=== PATIENT | female | born 1985 | race Caucasian/White ===

== ENCOUNTER 2018-07-21 12:12 | Day surgery (SDC) | payer BC ==
[~2018-07-21] VITALS: Ht 162.6 cm; Wt 107.2 kg
[~2018-07-21 12:12] MED LIST: AC500T PO; AMOX500C2 PO; CEPH-38 PO; CLIN300C3 PO; DCS100C PO; HYDR-3583 PO; IBP600T1 PO; IBP800T PO; IBUP-30 PO; PREN1TAB39 PO; PROAIR INH; SULF1TAB38 PO; XOPENEX
[2018-07-21 12:30] VITALS: BP 134/80
[2018-07-21] MEDS ORDERED: MIDAZOLAM 2 MG/2 ML (VERSED) VIAL ONE (12:48)
[2018-07-21] MEDS ORDERED: fentaNYL INJECTION 100 MCG/2 ML AMP ONE ×2 (12:48→13:51)
[2018-07-21] MEDS ORDERED: LACTATED RINGERS 1,000 ML IV PRN (12:52)
[2018-07-21] MEDS ORDERED: SCOPOLAMINE 1.5 MG (TRANSDERM-SCOP) PATCH TOP ONE (13:00)
[2018-07-21] MEDS ORDERED: FAMOTIDINE 20MG/2ML IV (PEPCID) IV ONE (13:00)
[2018-07-21] MEDS ORDERED: ONDANSETRON 4 MG/2 ML (SDV) Z0FRAN IV ONE (13:00)
[2018-07-21] MEDS ORDERED: MIDAZOLAM 2 MG/2 ML (VERSED) VIAL IV ONE (13:00)
[2018-07-21] MEDS ORDERED: NS (IVPB) 50 ML ONE (13:18)
[2018-07-21] MEDS ORDERED: metroNIDAZOLE 500MG/100ML IVPB 100 ML ONE (13:18)
[2018-07-21] MEDS ORDERED: ceFAZolin 1,000 MG/10 ML (ANCEF) VIAL ONE (13:18)
[2018-07-21] MEDS ORDERED: metroNIDAZOLE 500MG/100ML IVPB 100 ML IV ONE (13:30)
[2018-07-21] MEDS ORDERED: ceFAZolin INJECTION 1,000 MG in NS (IVPB) 50 ML IV ONE (13:30)
--- NOTE | 2018-07-21 13:30 | Progress Note-Pre Operative ---
Pre-Operative Progress Note H&P Reviewed The H&P was reviewed, patient examined and no changes noted. Date Seen by Provider: Jul 21, 2018 Time Seen by Provider: 12:35 Date H&P Reviewed: Jul 21, 2018 Time H&P Reviewed: 11:30 Pre-Operative Diagnosis: missed /blighted ovum, Rh + LASHAY GARCIA DO Jul 21, 2018 13:30
[2018-07-21] MEDS ORDERED: TERB30CR TP (13:49)
[2018-07-21] MEDS ORDERED: RT-ALBUINH INH (13:49)
[2018-07-21] MEDS ORDERED: METHYLERGONOVINE 0.2 MG/ML (METHERGINE) AMP ONE (13:51)
--- NOTE | 2018-07-21 13:58 | Operative Report ---
Operative Report Date of Procedure/Surgery Jul 21, 2018 Surgeon (s) LASHAY GARCIA DO Disassembler Product (s): NA Post-Operative Diagnosis Blighted ovum/Missed Procedure Performed Suction dilation and curettage Description of Procedure Anesthesia Type: General Estimated blood loss (mL): 50 Specimen(s) collected/removed products of conception Description of the Procedure With informed consent the patient was taken to the operating room where general anesthesia was found to be adequate. She was prepped and draped in the usual sterile fashion in the dorsolithotomy position. The bladder was drained of clear yellow urine with a straight cath. (urine 100 ml). The speculum was placed in the vagina and the cervix was grasped with a tenaculum and the uterus was dilated to 12 cm and then the cervix was gently dilated with Joshua dilators to allow the insertion of the curette. an 7 mm curved section curette was inserted and a gentle section was done removing products of conception. This was followed with a sharp curette until a gritty texture was heard. The tenaculum was removed and there was minimal bleeding from the cervix. The instruments were removed from the vagina. The patient was awakened and taken to the recovery room in a stable condition. Sponge, lap, instrument counts were correct times two. Findings of the Procedure moderate amounts of products of conception Allergies and Home Medications Allergies Coded Allergies: egg (Verified Allergy, Mild, 07/21/18) Latex, Natural Rubber (Verified Allergy, Unknown, rash, 07/21/18) Home Medications Acetaminophen 500 Mg Tablet, 1-2 TAB PO q 4 hr prn, (Reported) Albuterol Sulfate 1 Puff Puff, 1 PUFF INH Q4H, (Reported) 1 PUFF = 90 MCG Ibuprofen 200 Mg Tablet, 400 MG PO BID PRN, (Reported) Ibuprofen 800 Mg Tab, 800 MG PO q 8 hr prn, (Reported) Patient Home Medication List Home Medication List Reviewed: Yes LASHAY GARCIA DO Jul 21, 2018 13:58
[2018-07-21] MEDS ORDERED: ACHD5005 PO (14:08)
[2018-07-21] MEDS ORDERED: METH0.2T47 PO (14:08)
[2018-07-21] MEDS ORDERED: IBUP-1773 PO (14:08)
--- NOTE | 2018-07-21 14:11 | Discharge Inst-Women's Service ---
Discharge Inst-Women's Serv Depart Medication/Instructions New, Converted or Re-Newed RX: RX on Chart Instructions methergine should be taken as prescribed until gone (to prevent excess bleeding) Final Diagnosis missed /blighted ovum history of delayed post operative hemorrhage Consults/Follow Up Additional Follow Up: Yes (2-3 weeks) Activity Activity: Activity as Tolerated Driving Instructions: No Driving for 24 Hours NO SMOKING: NO SMOKING Nothing Inside Vagina: No Douching, No [place], No Tampons Diet Discharge Diet: No Restrictions Symptoms to Report to : Bleeding Excessive, Pain Increased, Fever Over 101 Degrees F, Vaginal Bleeding Increase, Cramps in Feet or Legs, Vaginal Discharge Foul For Any Problems or Questions: Contact Your Physician LASHAY GARCIA DO Jul 21, 2018 14:11
[2018-07-21] MEDS ORDERED: PROPOFOL INJECTION 50 ML IV ONE (14:14)
[2018-07-21] MEDS ORDERED: SEVOFLURANE (ULTANE) 15 ML INHAL SOLN ONE (14:14)
[2018-07-21] MEDS ORDERED: ONDANSETRON 4 MG/2 ML (SDV) Z0FRAN ONE ×2 (14:14→16:21)
[2018-07-21] MEDS ORDERED: KETOROLAC 30 MG/ML VIAL ONE (14:14)
[2018-07-21] MEDS ORDERED: LIDOCAINE PF 0.5% 50 ML (XYLOCAINE) VIAL ONE (14:14)
[2018-07-21] MEDS ORDERED: DEXAMETHASONE 10 MG/ML (DECADRON) 1 ML VIAL ONE (14:14)
[2018-07-21] MEDS ORDERED: proPOfol 200 MG/20 ML (DIPRIVAN) VIAL IV ONE (14:14)
[2018-07-21] MEDS ORDERED: HYDROmorphone 2 MG/ML VIAL (DILAUDID) IV ONE (14:15)
[2018-07-21] MEDS ORDERED: ONDANSETRON 4 MG/2 ML (SDV) Z0FRAN IVP PRN (14:15)
[2018-07-21] MEDS ORDERED: KETOROLAC 30 MG/ML VIAL IVP ONE (14:15)
[2018-07-21] MEDS ORDERED: HYDROmorphone 2 MG/ML VIAL (DILAUDID) ONE (14:15)
[2018-07-21] MEDS ORDERED: METHYLERGONOVINE 0.2 MG/ML (METHERGINE) AMP IM ONE (14:15)
--- NOTE | 2018-07-21 14:23 | Anesthesia-General Post-Op ---
General Patient Condition Mental Status/LOC: Same as Preop Cardiovascular: Satisfactory Nausea/Vomiting: Absent Respiratory: Satisfactory Pain: Controlled Complications: Absent Post Op Complications Complications None Follow Up Care/Instructions Patient Instructions None needed. Anesthesia/Patient Condition Patient Condition Patient is doing well, no complaints, stable vital signs, no apparent adverse anesthesia problems. No complications reported per nursing. D/C home per [facility] [place] Criteria: Yes CLINT FISHER CRNA Jul 21, 2018 14:23
[2018-07-21 15:00] VITALS: BP 137/83
[2018-07-21 15:30] VITALS: BP 133/75
[2018-07-21 16:00] VITALS: BP 133/87
[2018-07-21] MEDS ORDERED: ONDANSETRON 4 MG/2 ML (SDV) Z0FRAN IVP ONE (16:30)
[2018-07-21 16:45] VITALS: BP 120/67
[2018-07-21 16:55] VITALS: BP 120/67
== END 2018-07-21 16:55 | disposition home or self-care (01) ==
LOC: SDC 12:12
PROVIDERS: ATTEND Obstetrics & Gynecology
DX: O02.1 Missed abortion (principal); Z11.2 Encounter for screening for other bacterial diseases; J45.909 Unspecified asthma, uncomplicated; F41.9 Anxiety disorder, unspecified; E66.9 Obesity, unspecified; Z79.899 Other long term (current) drug therapy
CPT/HCPCS: 87081; 94664

== ENCOUNTER 2020-07-01 14:55 | Inpatient (IN) | payer BC ==
[2020-07-01] VITALS (10 sets, daily range): BP systolic 107–144; BP diastolic 65–99
[~2020-07-01] VITALS: Ht 160 cm; Wt 116.9 kg
[~2020-07-01 14:55] MED LIST changes: +ACHD5005 PO; +IBUP-1773 PO; +METH0.2T47 PO; +RT-ALBUINH INH; +TERB30CR TP
[2020-07-01] MEDS ORDERED: D5 LR IV SOLUTION 1,000 ML IV SCH ×2 (15:15→17:05)
[2020-07-01] MEDS ORDERED: BETAMETHASONE ACE/NA PHOS 6 MG/ML (CELESTONE SOLUSPAN) IM SCH (15:15)
[2020-07-01 15:29] LABS: BASOPHILS % (AUTO) 0 % (0-10); EOSINOPHILS # (AUTO) 0.2 10^3/uL (0.0-0.3); EOSINOPHILS % (AUTO) 1 % (0-10); HEMATOCRIT 38 % (35-52); HEMOGLOBIN 12.5 g/dL (11.5-16.0); LYMPHOCYTES % (AUTO) 16 % (12-44); MEAN CORPUSCULAR HEMOGLOBIN 28 pg (25-34); MEAN CORPUSCULAR HGB CONC 33 g/dL (32-36); MEAN CORPUSCULAR VOLUME 84 fL (80-99); MEAN PLATELET VOLUME 10.7 fL (9.0-12.2); MONOCYTES % (AUTO) 8 % (0-12); NEUTROPHILS # (AUTO) 9.4 10^3/uL (1.8-7.8); NEUTROPHILS % (AUTO) 74 % (42-75); PLATELET COUNT 298 10^3/uL (130-400); WHITE BLOOD COUNT 12.8 10^3/uL (4.3-11.0)
[2020-07-01] MEDS ORDERED: D5 LR IV SOLUTION 1,000 ML IV ONE (15:29)
[2020-07-01] MEDS ORDERED: BETAMETHASONE ACE/NA PHOS 6 MG/ML (CELESTONE SOLUSPAN) ONE (15:30)
[2020-07-01 15:49] LABS: ALANINE AMINOTRANSFERASE 97 U/L (0-55); ALBUMIN 3.6 GM/DL (3.2-4.5); ALKALINE PHOSPHATASE 177 U/L (40-136); BILIRUBIN,TOTAL 0.4 MG/DL (0.1-1.0); BUN/CREATININE RATIO 17; CALCIUM 9.7 MG/DL (8.5-10.1); CARBON DIOXIDE 18 MMOL/L (21-32); CHLORIDE 106 MMOL/L (98-107); GFR ESTIMATED > 60; GLUCOSE 70 MG/DL (70-105); POTASSIUM 3.6 MMOL/L (3.6-5.0); SODIUM 136 MMOL/L (135-145); TOTAL PROTEIN 7.6 GM/DL (6.4-8.2); URIC ACID 6.9 MG/DL (2.6-7.2)
--- NOTE | 2020-07-01 16:00 | NUR ---
Dr singh called by this RN with lab results and pt report including FHT, occasional UC, denies preE SS, current VS, 1 dose of beta admin per order, still working on starting IV. Dr Singh states with liver enzymes elevated, he is going to go ahead and do a Csection today approx 1700. this rn will call house sup/OR/anesthesia and place orders.
--- NOTE | 2020-07-01 16:07 | NUR ---
Gertrudis rooming house keeper called and notified of CS at 1700, jennifer serrano will call in OR crew
[2020-07-01] MEDS ORDERED: CITRIC ACID/SOB CIT (BICITRA) 30 ML UDC PO ONE (16:15)
[2020-07-01] MEDS ORDERED: LACTATED RINGERS 1,000 ML IV PRN (16:15)
[2020-07-01] MEDS ORDERED: METOCLOPRAMIDE INJ 10 MG/2 ML (REGLAN) IV ONE (16:15)
[2020-07-01 16:29] LABS: BILIRUBIN,URINE NEGATIVE (NEGATIVE); CLARITY,URINE TURBID; COLOR,URINE YELLOW; GLUCOSE, URINE (UA) NEGATIVE (NEGATIVE); KETONES,URINE 3+ (NEGATIVE); LEUKOCYTE ESTERASE ,URINE NEGATIVE (NEGATIVE); NITRITE,URINE NEGATIVE (NEGATIVE); PH,URINE 5.5 (5-9); PROTEIN,URINE TRACE (NEGATIVE)
[2020-07-01] MEDS ORDERED: ceFAZolin 2 GM IV Premixed 50 ML IV ONE (16:30)
[2020-07-01] MEDS ORDERED: metroNIDAZOLE 500MG/100ML IVPB 100 ML IV ONE (16:30)
[2020-07-01] MEDS ORDERED: CITRIC ACID/SOB CIT (BICITRA) 30 ML UDC ONE (16:36)
[2020-07-01] MEDS ORDERED: METOCLOPRAMIDE INJ 10 MG/2 ML (REGLAN) ONE (16:36)
[2020-07-01] MEDS ORDERED: FAMOTIDINE 20MG/2ML IV (PEPCID) ONE (16:36)
[2020-07-01] MEDS ORDERED: WATER (STERILE) FOR INJECTION 20 ML ONE (16:37)
[2020-07-01] MEDS ORDERED: AMPICILLIN 2,000 MG/14.8 ML (IV USE) ONE (16:37)
[2020-07-01] MEDS ORDERED: OXYTOCIN PRE-MIX DRIP 1,000 ML IV ONE (16:37)
[2020-07-01] MEDS ORDERED: metroNIDAZOLE 500MG/100ML IVPB 100 ML ONE (16:38)
[2020-07-01] MEDS ORDERED: fentaNYL INJECTION 100 MCG/2 ML AMP ONE (16:38)
[2020-07-01] MEDS ORDERED: ROPIVACAINE 5MG/ML 30ML VIAL ONE (16:42)
[2020-07-01] MEDS: LACTATED RINGERS 1,000 ML IV PRN ×2 (16:42→17:06)
[2020-07-01 16:46] LABS: AMORPHOUS SEDIMENT,UR LARGE AMOR URATES /LPF; BACTERIA,URINE NEGATIVE /HPF
[2020-07-01] MEDS ORDERED: OXYC1TAB12 PO (17:09)
[2020-07-01] MEDS ORDERED: DOCU-143 PO (17:09)
[2020-07-01] MEDS ORDERED: ceFAZolin 2 GM IV Premixed 50 ML ONE (17:09)
[2020-07-01] MEDS ORDERED: IBUP-1780 PO (17:09)
--- NOTE | 2020-07-01 17:11 | Discharge Inst-Surgical ---
Discharge Inst-Surgical Depart Medication/Instructions New, Converted or Re-Newed RX: RX on Chart Consults/Follow Up Patient Instructions: DIRECTED Orders & Referrals Follow Up Appt: RTC 1 week for incision check. Call to make follow up appt. for patient in 4 weeks. Wound Care: Remove maricel, apply benzoin and steri strips. Activity Per routine post instructions. Please call in RX to patient pharmacy. Diet as tolerated Patient may shower or tub bathe as desired. Continue home meds Activity Activity as Tolerated: No Diet Discharge Diet: No Restrictions ZO COTA MD Jul 01, 2020 17:11
[2020-07-01] MEDS ORDERED: ONDANSETRON 4 MG/2 ML (SDV) Z0FRAN IVP PRN ×2 (17:15→18:15)
[2020-07-01] MEDS ORDERED: MEASLES,MUMPS,RUBELLA 1 EA INJ SC ONE (17:15)
[2020-07-01] MEDS ORDERED: TETANUS,DIPTH,PERTUSS P/F (BOOSTRIX) 0.5 ML VIAL IM ONE (17:15)
--- NOTE | 2020-07-01 17:16 | History & Physical ---
History and Physical Date Seen by Provider: Jul 01, 2020 Time Seen by Provider: 17:12 This patient is a 34-year-old white female at 35+ weeks gestation. She was seen in clinic yesterday with an elevated blood pressure. Lab work was obtained for preeclampsia showed a slightly elevated urine protein and significantly elevated liver enzymes. She was instructed to come to labor and delivery today repeat labs shows an increase in the liver enzyme and an increase in the urine protein. Patient blood pressure has remained elevated well beyond her baseline consistent with preeclampsia and with the abnormal lab work now with severe features. Patient had a GBS culture that was. She denies rupture membranes or bleeding. She has a mild headache that is relatively new. Allergies are to latex and natural rubber Medications are vitamins and Nasonex Medical social and surgical history is all per the antepartum record HEENT exam is normal Neck is supple no lymphadenopathy no thyromegaly Abdomen is gravid obese soft nontender nondistended Extremities show no clubbing cyanosis. There is no Homans' sign. Laboratory Tests Test 07/01/20 15:15 07/01/20 15:20 07/01/20 16:30 Range/Units Urine Color YELLOW Urine Clarity TURBID Urine pH 5.5 5-9 Urine Specific [place] >=1.030 1.016-1.022 Urine Protein TRACE H NEGATIVE Urine Glucose (UA) NEGATIVE NEGATIVE Urine Ketones 3+ H NEGATIVE Urine Nitrite NEGATIVE NEGATIVE Urine Bilirubin NEGATIVE NEGATIVE Urine Urobilinogen 0.2 < = 1.0 MG/DL Urine Leukocyte Esterase NEGATIVE NEGATIVE Urine RBC (Auto) NEGATIVE NEGATIVE Urine RBC NONE /HPF Urine WBC NONE /HPF Urine Crystals PRESENT H /LPF Urine Amorphous Sediment LARGE [place] URATES H /LPF Urine Bacteria NEGATIVE /HPF Urine Casts NONE /LPF Urine Mucus NEGATIVE /LPF Urine Culture Indicated NO Urine Creatinine 187 H 30-125 MG/DL Urine Protein/Creatinine Ratio 0.16 White Blood Count 12.8 H 4.3-11.0 10^3/uL Red Blood Count 4.49 3.80-5.11 10^6/uL Hemoglobin 12.5 11.5-16.0 g/dL Hematocrit 38 35-52 % Mean Corpuscular Volume 84 80-99 fL Mean Corpuscular Hemoglobin 28 25-34 pg Mean Corpuscular Hemoglobin Concent 33 32-36 g/dL Red Cell Distribution Width 13.3 10.0-14.5 % Platelet Count 298 130-400 10^3/uL Mean Platelet Volume 10.7 9.0-12.2 fL Immature Granulocyte % (Auto) 1 % Neutrophils (%) (Auto) 74 42-75 % Lymphocytes (%) (Auto) 16 12-44 % Monocytes (%) (Auto) 8 0-12 % Eosinophils (%) (Auto) 1 0-10 % Basophils (%) (Auto) 0 0-10 % Neutrophils # (Auto) 9.4 H 1.8-7.8 10^3/uL Lymphocytes # (Auto) 2.0 1.0-4.0 10^3/uL Monocytes # (Auto) 1.0 0.0-1.0 10^3/uL Eosinophils # (Auto) 0.2 0.0-0.3 10^3/uL Basophils # (Auto) 0.0 0.0-0.1 10^3/uL Immature Granulocyte # (Auto) 0.1 0.0-0.1 10^3/uL Sodium Level 136 135-145 MMOL/L Potassium Level 3.6 3.6-5.0 MMOL/L Chloride Level 106 98-107 MMOL/L Carbon Dioxide Level 18 L 21-32 MMOL/L Anion Gap 12 5-14 MMOL/L Blood Urea Nitrogen 12 7-18 MG/DL Creatinine 0.70 0.60-1.30 MG/DL Estimat Glomerular Filtration Rate > 60 BUN/Creatinine Ratio 17 Glucose Level 70 70-105 MG/DL Uric Acid 6.9 2.6-7.2 MG/DL Calcium Level 9.7 8.5-10.1 MG/DL Corrected Calcium 10.0 8.5-10.1 MG/DL Total Bilirubin 0.4 0.1-1.0 MG/DL Aspartate Amino Transf (AST/SGOT) 42 H 5-34 U/L Alanine Aminotransferase (ALT/SGPT) 97 H 0-55 U/L Alkaline Phosphatase 177 H 40-136 U/L Lactate Dehydrogenase 227 H 125-220 U/L Total Protein 7.6 6.4-8.2 GM/DL Albumin 3.6 3.2-4.5 GM/DL Coronavirus 2019 ([facility]) Negative Negative Pelvic exam is deferred Assessment and plan 35-6/7 weeks gestation with preeclampsia with severe features. Patient has been given a single dose of betamethasone but we will proceed to delivery secondary to the severe features of her preeclampsia. We will initiate magnesium after delivery and continue that overnight and reevaluate in the morning. Surgical risk complications recovery and follow-up have been fully discussed. Patient understands the plan and agrees 35-6/7 weeks gestation with hypertensive disease of /preeclampsia with severe features and previous Allergies and Home Medications Allergies Coded Allergies: egg (Verified Allergy, Mild, 07/21/18) Latex, Natural Rubber (Verified Allergy, Unknown, rash, 07/21/18) Home Medications Acetaminophen 500 Mg Tablet, 1-2 TAB PO q 4 hr prn, (Reported) Albuterol Sulfate 1 Puff Puff, 1 PUFF INH Q4H, (Reported) 1 PUFF = 90 MCG Docusate Sodium 100 Mg Capsule, 100 MG PO BID Prescribed by: ZO SANTO on 07/01/201708 Hydrocodone Bit/Acetaminophen 1 Tab Tab, 1 TAB PO Q6H PRN for PAIN-MODERATE Prescribed by: LASHAY GARCIA on 07/21/18 140 Ibuprofen 200 Mg Tablet, 400 MG PO BID PRN, (Reported) Ibuprofen 600 Mg Tablet, 600 MG PO Q6H Prescribed by: LASHAY GARCIA on 07/21/18 1408 Ibuprofen 800 Mg Tablet, 800 MG PO Q6H PRN for PAIN Prescribed by: ZO SANTO on 07/01/201708 Methylergonovine Maleate 0.2 Mg Tablet, 0.2 MG PO QID Prescribed by: LASHAY GARCIA on 07/21/18 1408 Oxycodone HCl/Acetaminophen 1 Each Tablet, 1 TAB PO Q8H PRN for PAIN-MODERATE Prescribed by: ZO SANTO on 07/01/201708 Patient Home Medication List Home Medication List Reviewed: Yes ZO COTA MD Jul 01, 2020 17:16
[2020-07-01] MEDS ORDERED: ONDANSETRON 4 MG/2 ML (SDV) Z0FRAN ONE (17:17)
[2020-07-01 17:23] LABS: EOSINOPHILS % (MANUAL) 1 %; HYPOCHROMASIA SLIGHT; LYMPHOCYTES % (MANUAL) 12 %; MONOCYTES % (MANUAL) 5 %; NEUTROPHILS % (MANUAL) 82 %
[2020-07-01] MEDS ORDERED: FAMOTIDINE 20MG/2ML IV (PEPCID) IV ONE (17:30)
[2020-07-01] MEDS ORDERED: FLU QUADRIvalent (3YOA+) 60 mcg/0.5 ml 2020-21 (AFLURIA) IM ONE (18:00)
[2020-07-01] MEDS ORDERED: HYDROmorphone 2 MG/ML VIAL (DILAUDID) IV ONE (18:15)
[2020-07-01] MEDS: KETOROLAC 30 MG/ML VIAL IVP SCH (19:51)
[2020-07-01] MEDS: OXYTOCIN PRE-MIX DRIP 500 ML IV SCH (19:52)
[2020-07-01] MEDS ORDERED: DOCUSATE SODIUM 100 MG (COLACE) CAP PO SCH (21:00)
[2020-07-01] MEDS: oxyCODONE/APAP 10/325MG (PERCOCET 10) TABLET PO PRN (23:21)
--- NOTE | 2020-07-01 23:40 | NUR ---
Pt. up to bathroom to void with nurse assist. Pt. voided 350ml or urine in hat. Clean v-pad and underwear put on. Pt. helped back to bed. Tolerated well.
[2020-07-02] MEDS: KETOROLAC 30 MG/ML VIAL IVP SCH (01:53)
[2020-07-02 02:00] VITALS: BP 141/79
--- NOTE | 2020-07-02 02:13 | OPERATIVE REPORT ---
DATE OF SERVICE: 07/01/2020 PREOPERATIVE DIAGNOSES: A 35 and 6/7 weeks' gestation with preeclampsia with severe features as well as previous C-sections x2. POSTOPERATIVE DIAGNOSES: A 35 and 6/7 weeks' gestation with preeclampsia with severe features as well as previous C-sections x2. OPERATIVE PROCEDURE: Repeat low transverse delivery of a viable female infant with Apgars of 8 and 9 at 1 and 5 minutes respectively, weight of 6 pounds 9 ounces, time of 1732 and a cord blood pH of 7.35. OPERATIVE DESCRIPTION: With the patient in the supine position under satisfactory spinal analgesia, she was positioned supine, prepped and draped in the usual fashion for abdominal surgery. Garcia catheter was placed in the urinary bladder. A repeat Pfannenstiel incision was made through the skin with a scalpel. The patient's abdomen was entered in the usual manner. Bladder retractor placed into position and a clean scalpel used to make a 4 cm hysterotomy incision transversely across the lower uterine segment that was extended bluntly. A normal amount of amniotic fluid that was clear was released on hysterotomy. The incision was extended bluntly and a vigorous viable female was delivered via the uterine incision in the usual manner. The infant was bulb suctioned on delivery of the head and again on completion of delivery. Umbilical cord was doubly clamped and cut and infant passed to the pediatric nurse in attendance for delivery. Cord bloods were obtained. The placenta delivered spontaneously shows it was a fairly large, but somewhat atretic appearing placenta. It was sent to pathology for permanent section. The uterus was exteriorized the interior wiped cleaned with a wet laparotomy sponge. Uterine incision was then closed with running locked suture of 2-0 Vicryl. Hemostasis was complete. The uterus was returned to abdominal cavity. All blood clot and debris removed from the abdominal cavity. With sponge and needle counts correct and hemostasis assured, the anterior parietal peritoneum was closed with running suture of 2-0 Vicryl. Rectus muscles were closed with that suture as well. The rectus fascia was closed with 2-0 Vicryl, subcutaneous tissue was closed with 2-0 Vicryl and the skin was stapled. Sponge and needle counts were correct on completion of the procedure. Estimated blood loss was around 500 mL. The patient tolerated the procedure well and was transferred to recovery room in stable condition. The infant remained under the care of the pediatric nurse and Dr. Harrington, the environmental engineering technician in attendance. Job ID: [id number] DocumentID: [id number] Dictated Date: 07/01/2020 17:53:39 Tamping Machine Operator Date: 07/02/2020 02:12:47 Dictated By: ZO COTA MD MTDD
[2020-07-02 05:37] VITALS: BP 121/71
[2020-07-02] MEDS: oxyCODONE/APAP 10/325MG (PERCOCET 10) TABLET PO PRN ×3 (05:51→15:03)
[2020-07-02 06:06] LABS: BASOPHILS # (AUTO) 0.1 10^3/uL (0.0-0.1); BASOPHILS % (AUTO) 0 % (0-10); EOSINOPHILS % (AUTO) 0 % (0-10); HEMATOCRIT 33 % (35-52); HEMOGLOBIN 10.8 g/dL (11.5-16.0); LYMPHOCYTES # (AUTO) 1.5 10^3/uL (1.0-4.0); LYMPHOCYTES % (AUTO) 8 % (12-44); MEAN CORPUSCULAR HEMOGLOBIN 27 pg (25-34); MEAN CORPUSCULAR HGB CONC 33 g/dL (32-36); MEAN CORPUSCULAR VOLUME 84 fL (80-99); MEAN PLATELET VOLUME 10.5 fL (9.0-12.2); MONOCYTES # (AUTO) 1.6 10^3/uL (0.0-1.0); MONOCYTES % (AUTO) 8 % (0-12); NEUTROPHILS # (AUTO) 16.7 10^3/uL (1.8-7.8); NEUTROPHILS % (AUTO) 83 % (42-75); PLATELET COUNT 248 10^3/uL (130-400); WHITE BLOOD COUNT 20.1 10^3/uL (4.3-11.0)
[2020-07-02 06:20] LABS: ALANINE AMINOTRANSFERASE 73 U/L (0-55)
--- NOTE | 2020-07-02 07:29 | Progress Note ---
Standard Progress Note Progress Notes/Assess & Plan Date Seen by a Provider: Jul 02, 2020 Time Seen by a Provider: 07:26 Progress/Assessment & Plan This patient is without complaint she is ambulating, voiding, tolerating oral intake and has good pain control. Patient denies headache, denies shortness of breath, denies nausea vomiting, and denies chest pain Laboratory Tests Test 07/01/20 15:15 07/01/20 15:20 07/01/20 16:30 07/02/20 05:56 Range/Units Urine Color YELLOW Urine Clarity TURBID Urine pH 5.5 5-9 Urine Specific [place] >=1.030 1.016-1.022 Urine Protein TRACE H NEGATIVE Urine Glucose (UA) NEGATIVE NEGATIVE Urine Ketones 3+ H NEGATIVE Urine Nitrite NEGATIVE NEGATIVE Urine Bilirubin NEGATIVE NEGATIVE Urine Urobilinogen 0.2 < = 1.0 MG/DL Urine Leukocyte Esterase NEGATIVE NEGATIVE Urine RBC (Auto) NEGATIVE NEGATIVE Urine RBC NONE /HPF Urine WBC NONE /HPF Urine Crystals PRESENT H /LPF Urine Amorphous Sediment LARGE [place] URATES H /LPF Urine Bacteria NEGATIVE /HPF Urine Casts NONE /LPF Urine Mucus NEGATIVE /LPF Urine Culture Indicated NO Urine Creatinine 187 H 30-125 MG/DL Urine Protein/Creatinine Ratio 0.16 White Blood Count 12.8 H 20.1 H 4.3-11.0 10^3/uL Red Blood Count 4.49 3.95 3.80-5.11 10^6/uL Hemoglobin 12.5 10.8 L 11.5-16.0 g/dL Hematocrit 38 33 L 35-52 % Mean Corpuscular Volume 84 84 80-99 fL Mean Corpuscular Hemoglobin 28 27 25-34 pg Mean Corpuscular Hemoglobin Concent 33 33 32-36 g/dL Red Cell Distribution Width 13.3 13.3 10.0-14.5 % Platelet Count 298 248 130-400 10^3/uL Mean Platelet Volume 10.7 10.5 9.0-12.2 fL Immature Granulocyte % (Auto) 1 1 % Neutrophils (%) (Auto) 74 83 H 42-75 % Lymphocytes (%) (Auto) 16 8 L 12-44 % Monocytes (%) (Auto) 8 8 0-12 % Eosinophils (%) (Auto) 1 0 0-10 % Basophils (%) (Auto) 0 0 0-10 % Neutrophils # (Auto) 9.4 H 16.7 H 1.8-7.8 10^3/uL Lymphocytes # (Auto) 2.0 1.5 1.0-4.0 10^3/uL Monocytes # (Auto) 1.0 1.6 H 0.0-1.0 10^3/uL Eosinophils # (Auto) 0.2 0.0 0.0-0.3 10^3/uL Basophils # (Auto) 0.0 0.1 0.0-0.1 10^3/uL Immature Granulocyte # (Auto) 0.1 0.3 H 0.0-0.1 10^3/uL Neutrophils % (Manual) 82 % Lymphocytes % (Manual) 12 % Monocytes % (Manual) 5 % Eosinophils % (Manual) 1 % Hypochromasia SLIGHT Sodium Level 136 135-145 MMOL/L Potassium Level 3.6 3.6-5.0 MMOL/L Chloride Level 106 98-107 MMOL/L Carbon Dioxide Level 18 L 21-32 MMOL/L Anion Gap 12 5-14 MMOL/L Blood Urea Nitrogen 12 7-18 MG/DL Creatinine 0.70 0.60-1.30 MG/DL Estimat Glomerular Filtration Rate > 60 BUN/Creatinine Ratio 17 Glucose Level 70 70-105 MG/DL Uric Acid 6.9 2.6-7.2 MG/DL Calcium Level 9.7 8.5-10.1 MG/DL Corrected Calcium 10.0 8.5-10.1 MG/DL Total Bilirubin 0.4 0.1-1.0 MG/DL Aspartate Amino Transf (AST/SGOT) 42 H 32 5-34 U/L Alanine Aminotransferase (ALT/SGPT) 97 H 73 H 0-55 U/L Alkaline Phosphatase 177 H 40-136 U/L Lactate Dehydrogenase 227 H 287 H 125-220 U/L Total Protein 7.6 6.4-8.2 GM/DL Albumin 3.6 3.2-4.5 GM/DL Coronavirus 2019 ([facility]) Negative Negative Vital Signs Date Time Temp Pulse Resp B/P (MAP) Pulse Ox O2 Delivery O2 Flow Rate FiO2 07/02/20 05:37 36.8 87 20 121/71 (88) 97 Room Air 07/02/20 02:00 36.6 71 18 141/79 (99) 97 Room Air 07/02/20 01:58 Room Air 07/01/20 23:00 36.6 80 18 128/71 (90) 96 Room Air 07/01/20 19:55 37.0 86 18 129/71 (90) 97 Room Air 07/01/20 18:51 36.9 12 118/89 (99) 98 Room Air 07/01/20 18:50 Room Air 07/01/20 18:40 18 144/84 (104) 98 Room Air 07/01/20 18:35 Room Air 07/01/20 18:30 18 136/80 (98) 97 Room Air 07/01/20 18:20 Room Air 07/01/20 18:20 20 114/93 (100) 97 Room Air 07/01/20 18:15 16 107/99 (102) 98 Room Air 07/01/20 18:15 Room Air 07/01/20 18:05 Room Air 07/01/20 18:05 36.7 18 136/79 (98) 99 Room Air 07/01/20 15:45 101 143/73 (96) Room Air 07/01/20 15:10 37.2 93 16 144/65 (91) 99 Room Air I & O 07/02/20 07:00 Intake Total 2725 ml Output Total 1230 ml Balance 1495 ml Vital signs are stable. Patient is afebrile. Her blood pressures are normalizing The abdomen is benign the surgical incision is clean dry and intact. The fundus is firm below the umbilicus and nontender. Extremities show no clubbing or cyanosis. There is no Homans' sign. There are some pretibial pitting edema that is normal. Assessment and plan postoperative day #1 status post repeat delivery at 35-6/7 weeks gestation. Patient is doing well and will have routine convalescent care with close attention to her blood pressure ZO COTA MD Jul 02, 2020 07:29
[2020-07-02] MEDS ORDERED: IBUPROFEN 800 MG (MOTRIN) TAB PO ONE (07:50)
[2020-07-02 08:00] VITALS: BP 112/58
--- NOTE | 2020-07-02 08:00 | NUR ---
A.M. ASSESSMENT COMPLETED. VSS.
[2020-07-02] MEDS: IBUPROFEN 800 MG (MOTRIN) TAB PO SCH ×3 (08:02→20:17)
[2020-07-02] MEDS: DOCUSATE SODIUM 100 MG (COLACE) CAP PO SCH ×2 (08:02→20:16)
--- NOTE | 2020-07-02 08:16 | Anesthesia-Regional Post-Op ---
Regional Patient Condition Mental Status: Alert, Oriented x3 Circulation: Same as Pre-Op Headache: Absent Sensation: Full Recovery Motor Block: Absent Post Op Complications Complications None Follow Up Care/Instructions Patient Instructions None needed. Anesthesia/Patient Condition Patient is doing well, no complaints, stable vital signs, no apparent adverse anesthesia problems. No complications reported per nursing. MARK MACHUCA CRNA Jul 02, 2020 08:16
--- NOTE | 2020-07-02 09:40 | NUR ---
OUT TO AMBULATE TO NURSERY R/T INFANT BEING TREATED FOR LOW BLOOD SUGAR. PT JUST SHOWERED. MOVING WELL.
[2020-07-02 12:45] VITALS: BP 124/71
--- NOTE | 2020-07-02 12:45 | NUR ---
CARING FOR INFANT IN ROOM. GOOD INTERACTION NOTED.
--- NOTE | 2020-07-02 14:20 | NUR ---
PT C/O HAVING SOME BLEEDING ALONG INCISION. THIS RN CLEANED UP INCISION, REASSURED PT AND PLACED KERLEX GAUZE OVER INCISION AND BETWEEN SKIN FOLD.
--- NOTE | 2020-07-02 14:34 | NUR ---
DR. COTA NOTIFIED OF SMALL AMOUNT OF OOZING OF BLOOD ALONG INCISION AND GAUZE PLACED. WILL CONTINUE TO MONITOR.
--- NOTE | 2020-07-02 15:00 | NUR ---
REPORT TO NATALIIA VALLEJO RN.
--- NOTE | 2020-07-02 16:45 | NUR ---
pt ambulating in halls accompanied by s.o. and pushing in open crib.
[2020-07-02 17:19] VITALS: BP 122/64
--- NOTE | 2020-07-02 18:30 | NUR ---
Rn called to room. pt reports gauze placed over incision appears to be soiled. Rn noted kerlex dressing to be soiled with red blood. kerlex gauze dc'd, incision cleansed, small amt of oozing from mid incision noted, cleansed and replaced kerlex gauze to incision site. Discussed with pt that if/when gauze is soiled that it needs to be changed. pt verbalized understanding.
[2020-07-02] MEDS: OXYTOCIN PRE-MIX DRIP 500 ML IV SCH (19:44)
[2020-07-02 20:14] VITALS: BP 113/69
--- NOTE | 2020-07-02 20:30 | NUR ---
RN to room for assessment. Pt reports little bleeding and few pea sized clots. VSS. Gauze dressing over incision site noted to have light serosanguinous drainage. Pt reports the amount is less than prior dressing change. Dressing removed and new gauze put over incision site. Will continue to monitor. Pt denies any needs or concerns at this time.
[2020-07-03 01:23] VITALS: BP 125/57
[2020-07-03] MEDS: IBUPROFEN 800 MG (MOTRIN) TAB PO SCH ×3 (01:24→13:30)
--- NOTE | 2020-07-03 07:00 | NUR ---
REPORT FROM CAILIN OBRIEN AND EDMUNDO OBRIEN
--- NOTE | 2020-07-03 08:00 | NUR ---
INITIAL ASSESSMENT COMPLETED, VSS, SEE INTERVENTIONS FOR DETAILED ASSESSMENTS, PLAN OF CARE REVIEWED WITH PT/SO, NO QUESTIONS OR CONCERNS NOTED. AT BEDSIDE, APPRO. BONDING NOTED. DR COTA AT BEDSIDE, VISITING WITH PT, NEW ORDERS RECEIVED.
[2020-07-03 08:08] VITALS: BP 130/72
[2020-07-03] MEDS: DOCUSATE SODIUM 100 MG (COLACE) CAP PO SCH (08:08)
--- NOTE | 2020-07-03 08:19 | Progress Note ---
Standard Progress Note Progress Notes/Assess & Plan Date Seen by a Provider: Jul 03, 2020 Time Seen by a Provider: 08:16 Progress/Assessment & Plan This patient is without complaint she is ambulating, voiding, tolerating oral intake and has good pain control. Patient denies headache, denies shortness of breath, denies nausea vomiting, and denies chest pain Laboratory Tests Test 07/01/20 15:15 07/01/20 15:20 07/01/20 16:30 07/02/20 05:56 Range/Units Urine Color YELLOW Urine Clarity TURBID Urine pH 5.5 5-9 Urine Specific [place] >=1.030 1.016-1.022 Urine Protein TRACE H NEGATIVE Urine Glucose (UA) NEGATIVE NEGATIVE Urine Ketones 3+ H NEGATIVE Urine Nitrite NEGATIVE NEGATIVE Urine Bilirubin NEGATIVE NEGATIVE Urine Urobilinogen 0.2 < = 1.0 MG/DL Urine Leukocyte Esterase NEGATIVE NEGATIVE Urine RBC (Auto) NEGATIVE NEGATIVE Urine RBC NONE /HPF Urine WBC NONE /HPF Urine Crystals PRESENT H /LPF Urine Amorphous Sediment LARGE LIVIER URATES H /LPF Urine Bacteria NEGATIVE /HPF Urine Casts NONE /LPF Urine Mucus NEGATIVE /LPF Urine Culture Indicated NO Urine Creatinine 187 H 30-125 MG/DL Urine Protein/Creatinine Ratio 0.16 White Blood Count 12.8 H 20.1 H 4.3-11.0 10^3/uL Red Blood Count 4.49 3.95 3.80-5.11 10^6/uL Hemoglobin 12.5 10.8 L 11.5-16.0 g/dL Hematocrit 38 33 L 35-52 % Mean Corpuscular Volume 84 84 80-99 fL Mean Corpuscular Hemoglobin 28 27 25-34 pg Mean Corpuscular Hemoglobin Concent 33 33 32-36 g/dL Red Cell Distribution Width 13.3 13.3 10.0-14.5 % Platelet Count 298 248 130-400 10^3/uL Mean Platelet Volume 10.7 10.5 9.0-12.2 fL Immature Granulocyte % (Auto) 1 1 % Neutrophils (%) (Auto) 74 83 H 42-75 % Lymphocytes (%) (Auto) 16 8 L 12-44 % Monocytes (%) (Auto) 8 8 0-12 % Eosinophils (%) (Auto) 1 0 0-10 % Basophils (%) (Auto) 0 0 0-10 % Neutrophils # (Auto) 9.4 H 16.7 H 1.8-7.8 10^3/uL Lymphocytes # (Auto) 2.0 1.5 1.0-4.0 10^3/uL Monocytes # (Auto) 1.0 1.6 H 0.0-1.0 10^3/uL Eosinophils # (Auto) 0.2 0.0 0.0-0.3 10^3/uL Basophils # (Auto) 0.0 0.1 0.0-0.1 10^3/uL Immature Granulocyte # (Auto) 0.1 0.3 H 0.0-0.1 10^3/uL Neutrophils % (Manual) 82 % Lymphocytes % (Manual) 12 % Monocytes % (Manual) 5 % Eosinophils % (Manual) 1 % Hypochromasia SLIGHT Sodium Level 136 135-145 MMOL/L Potassium Level 3.6 3.6-5.0 MMOL/L Chloride Level 106 98-107 MMOL/L Carbon Dioxide Level 18 L 21-32 MMOL/L Anion Gap 12 5-14 MMOL/L Blood Urea Nitrogen 12 7-18 MG/DL Creatinine 0.70 0.60-1.30 MG/DL Estimat Glomerular Filtration Rate > 60 BUN/Creatinine Ratio 17 Glucose Level 70 70-105 MG/DL Uric Acid 6.9 2.6-7.2 MG/DL Calcium Level 9.7 8.5-10.1 MG/DL Corrected Calcium 10.0 8.5-10.1 MG/DL Total Bilirubin 0.4 0.1-1.0 MG/DL Aspartate Amino Transf (AST/SGOT) 42 H 32 5-34 U/L Alanine Aminotransferase (ALT/SGPT) 97 H 73 H 0-55 U/L Alkaline Phosphatase 177 H 40-136 U/L Lactate Dehydrogenase 227 H 287 H 125-220 U/L Total Protein 7.6 6.4-8.2 GM/DL Albumin 3.6 3.2-4.5 GM/DL Coronavirus 2019 ([facility]) Negative Negative Vital Signs Date Time Temp Pulse Resp B/P (MAP) Pulse Ox O2 Delivery O2 Flow Rate FiO2 07/02/20 05:37 36.8 87 20 121/71 (88) 97 Room Air 07/02/20 02:00 36.6 71 18 141/79 (99) 97 Room Air 07/02/20 01:58 Room Air 07/01/20 23:00 36.6 80 18 128/71 (90) 96 Room Air 07/01/20 19:55 37.0 86 18 129/71 (90) 97 Room Air 07/01/20 18:51 36.9 12 118/89 (99) 98 Room Air 07/01/20 18:50 Room Air 07/01/20 18:40 18 144/84 (104) 98 Room Air 07/01/20 18:35 Room Air 07/01/20 18:30 18 136/80 (98) 97 Room Air 07/01/20 18:20 Room Air 07/01/20 18:20 20 114/93 (100) 97 Room Air 07/01/20 18:15 16 107/99 (102) 98 Room Air 07/01/20 18:15 Room Air 07/01/20 18:05 Room Air 07/01/20 18:05 36.7 18 136/79 (98) 99 Room Air 07/01/20 15:45 101 143/73 (96) Room Air 07/01/20 15:10 37.2 93 16 144/65 (91) 99 Room Air I & O 07/02/20 07:00 Intake Total 2725 ml Output Total 1230 ml Balance 1495 ml Vital signs are stable. Patient is afebrile. Her blood pressures are normalizing The abdomen is benign the surgical incision is clean dry and intact. The fundus is firm below the umbilicus and nontender. Extremities show no clubbing or cyanosis. There is no Homans' sign. There are some pretibial pitting edema that is normal. Assessment and plan postoperative day #1 status post repeat delivery at 35-6/7 weeks gestation. Patient is doing well and will have routine convalescent care with close attention to her blood pressure July 03, 2020 Patient is without complaint. She is ambulating, voiding, tolerating oral intake well and has good pain control. Vital Signs Date Time Temp Pulse Resp B/P (MAP) Pulse Ox O2 Delivery O2 Flow Rate FiO2 07/03/20 08:08 36.6 81 18 130/72 (91) 98 Room Air 07/03/20 01:23 36.4 67 18 125/57 (79) 96 Room Air 07/02/20 20:14 37.0 77 18 113/69 (84) 97 Room Air 07/02/20 17:19 37.2 74 18 122/64 (83) 96 Room Air 07/02/20 12:45 37.1 79 18 124/71 (88) 97 Room Air I & O 07/03/20 07:00 Intake Total 1820 ml Output Total 1750 ml Balance 70 ml Vital signs are stable. Patient is afebrile. Blood pressures are essentially normal. The abdomen is benign. The surgical incision is clean dry and intact. The fundus is firm below the umbilicus and nontender. Extremities show no clubbing or cyanosis. There is no Homans' sign. There are some pretibial pitting edema that is normal. Assessment and plan Postoperative day #2 status post repeat delivery at 35+ weeks gestation due to severe preeclampsia. Patient is doing well and will be discharged home. Patient may remain if baby is not discharged home as well Final Diagnosis 35-week repeat delivery ZO COTA MD Jul 03, 2020 08:19
--- NOTE | 2020-07-03 13:25 | NUR ---
JASPER PALENCIA demonstrates understanding of discharge instructions and accurately returns instructions upon questioning. Copy of Post-Discharge Instructions given to pt. JASPER PALENCIA is able to manage continuing needs after discharge. Patients belongings returned to . Patient discharged from 3308-1 on 07/03/20 at 1325. JASPER PALENCIA rooming in until discharged.
[2020-07-03 13:31] VITALS: BP 132/65
== END 2020-07-03 13:25 | disposition home or self-care (01) | DRG 788 ==
LOC: LDRP 14:55
PROVIDERS: ADMIT Obstetrics & Gynecology; ATTEND Obstetrics & Gynecology
PROC: 10D00Z1 Extraction of Products of Conception, Low, Open Approach (ICD-10-PCS; principal; 2020-07-01 17:10)
DX: O14.14 Severe pre-eclampsia complicating childbirth (principal); O60.14X0 Preterm labor third trimester with preterm delivery third trimester, not applicable or unspecified; O34.211 Maternal care for low transverse scar from previous cesarean delivery; Z37.0 Single live birth; Z3A.35 35 weeks gestation of pregnancy; Z20.828 Contact with and (suspected) exposure to other viral communicable diseases
CPT/HCPCS: 36415; 80053; 81000; 82570; 83615; 84156; 84450; 84460; 84550; 85007; 85025; 85027; 86850; 86900; 86901; 87635; 88307; 94664

== ENCOUNTER 2020-07-15 05:38 | Outpatient (RCR) | payer BC ==
[~2020-07-15 05:38] MED LIST changes: +DOCU-143 PO; +IBUP-1780 PO; +OXYC1TAB12 PO
== END 2020-07-16 10:13 | disposition home or self-care (01) ==
LOC: PREOP 05:38
PROVIDERS: ATTEND Obstetrics & Gynecology
DX: Z01.818 Encounter for other preprocedural examination (principal)

== ENCOUNTER 2020-07-27 05:57 | Emergency (ER) | payer BC ==
[~2020-07-27] VITALS: Ht 160 cm; Wt 107.3 kg
[2020-07-27 06:08] VITALS: BP 141/87
--- NOTE | 2020-07-27 06:36 | ED GI ---
General Chief Complaint: Abdominal/GI Problems Stated Complaint: ABD CRAMP/PAIN Nursing Triage Note: Pt ambulates to room #5 with c/o bilat lower abd cramping et constipation. Reports caesarean section delivery x3wks ago with difficulty passing bowel movements since. Pt reports upon rise on this day, she began to experience intermittent bilat lower abd cramping. Reports LBM 07/25/20. Pt noted to be tearful during triage. A&OX4. Sepsis Screen: No Definite Risk Source of Information: Patient Exam Limitations: No Limitations History of Present Illness Date Seen by Provider: Jul 27, 2020 Time Seen by Provider: 06:20 Initial Comments This delightful 35-year-old young lady presents to the emergency room about 3 weeks after section with complaints of constipation and abdominal pain. Her abdomen is not tender. In recent days she has been passing small hard stools with discomfort and difficulty. She has taken some Colace but no laxatives. She briefly used Percocet after the section but has not continued with opioids. She has also been attempting a keto diet which has resulted in less fiber intake. She reports having difficulty with bowel movements ever since the section. Dr. Reyes is her seo expert. Allergies and Home Medications Allergies Coded Allergies: egg (Verified Allergy, Mild, 07/21/18) Latex, Natural Rubber (Verified Allergy, Unknown, rash, 07/21/18) Home Medications Albuterol Sulfate 1 Puff Puff, 1 PUFF INH Q4H, (Reported) 1 PUFF = 90 MCG Docusate Sodium 100 Mg Capsule, 100 MG PO BID Prescribed by: ZO SANTO on 07/01/201708 Ibuprofen 800 Mg Tablet, 800 MG PO Q6H PRN for PAIN Prescribed by: ZO SANTO on 07/01/201708 Oxycodone HCl/Acetaminophen 1 Each Tablet, 1 TAB PO Q8H PRN for PAIN-MODERATE Prescribed by: ZO SANTO on 07/01/201708 Patient Home Medication List Home Medication List Reviewed: Yes Review of Systems Review of Systems Constitutional: no symptoms reported EENTM: No Symptoms Reported Respiratory: No Symptoms Reported Cardiovascular: No Symptoms Reported Gastrointestinal: See HPI Genitourinary: No Symptoms Reported Musculoskeletal: no symptoms reported Skin: no symptoms reported Psychiatric/Neurological: No Symptoms Reported Endocrine: No Symptoms Reported Past Hhaladg-Comsyt-Jqralm Hx Past Med/Social Hx: Reviewed Nursing Past Med/Soc Hx Patient Social History Alcohol Use: Rarely Uses Recreational Drug Use: No (ETOH OCCASIONALLY) Smoking Status: Never a Smoker 2nd Hand Smoke Exposure: No Recent Foreign Travel: No Contact w/Someone Who Travel: No Recent Infectious Disease Expo: No Recent Hopitalizations: Yes (SPIDER BITE) Immunizations Up To Date Date of Influenza Vaccine: May 22, 2011 Past Medical History Surgeries: Yes () Section Respiratory: Yes Currently Using CPAP: No Currently Using BIPAP: No Cardiac: No Neurological: No Reproductive Disorders: No Sexually Transmitted Disease: No Gastrointestinal: No Musculoskeletal: No Endocrine: No Psychosocial: Yes Blood Disorders: No Family Medical History FH: heart disease MATERNA GRANDFATHER Hypertension MATERNA GRANDFATHER Physical Exam Vital Signs Vital Signs - First Documented 07/27/20 06:08 Temp 36.3 Pulse 112 Resp 18 B/P (MAP) 141/87 (105) Pulse Ox 97 O2 Delivery Room Air Capillary Refill : Less Than 3 Seconds Height/Weight/BMI Height: 5'4.00" Weight: 236lbs. 6.0oz. 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 She did not appear to be obstructed as she is still able to pass flatus and has no tenderness or distention on exam. She denied nausea or vomiting. We discussed strategies for managing her constipation. See discharge instructions for documentation of some of that discussion. Departure Impression Primary Impression: Constipation Qualified Codes: K59.00 - Constipation, unspecified Disposition: HOME, SELF-CARE Condition: Improved Departure-Patient Inst. Decision time for Depature: 06:31 Referrals: TED WHITNEY DO (PCP/Family) Primary Care Physician Patient Instructions: Clear Liquid Diet, Constipation, Adult (DC) Add. Discharge Instructions: Adhere to a clear liquid diet today. Drink lots of clear liquids today. Once you have a good bowel movement, increase solids in your diet. Eat plenty of fiber with fruits, vegetables, and whole grains. You may also add in a fiber supplement such as Metamucil. Avoid use of constipating pain medications such as Ultram (tramadol) or opioids such as Percocet. Instead, use Tylenol (acetaminophen) and/or ibuprofen. Today use MiraLAX (polyethylene glycol) 2-3 doses throughout the day. Then use as needed for further constipation. Dissolve 1 capful (fill to line) in 8 to 12 ounces of clear liquids for each dose. MiraLAX may take a day or 2 to reach good effect. You may also use something rectally to help pass the hard stools such as a glycerin suppository, Dulcolax suppositories, or enemas. Please call or return to care if you have further problems or concerns. All discharge instructions reviewed with patient and/or family. Voiced understanding. Copy Copies To 1: ZO REYSE MD, JOSHUA T MD Jul 27, 2020 06:36
== END 2020-07-27 06:51 | disposition home or self-care (01) ==
LOC: EDUNIT# 05:57 → ER 05:58
DX: K59.00 Constipation, unspecified (principal); Z82.49 Family history of ischemic heart disease and other diseases of the circulatory system; Z91.040 Latex allergy status

== ENCOUNTER → 2020-09-16 | Outpatient (CLI) | payer BC | LOC: CARD 13:00 | PROVIDERS: ATTEND Internal Medicine Cardiovascular Disease | DX: R00.2 Palpitations (principal); R06.02 Shortness of breath | CPT/HCPCS: 93225; 93226; 93306; 93351 ==